=== PATIENT | female | born 1970 | race Caucasian/White ===

== ENCOUNTER 2020-03-12 10:09 | Day surgery (SDC) | payer MEDICARE, MEDICAID ==
[~2020-03-12] VITALS: Ht 165.1 cm; Wt 103.0 kg
[~2020-03-12 10:09] MED LIST: BUPIVACAINE/PF 0.5% ONE; LIDOCAINE/PF 1%, 30ML ONE
[2020-03-12 10:37] VITALS: BP 117/71
[2020-03-12] MEDS ORDERED: CHLORHEXIDINE 15 ML UDC MM STA (10:38)
[2020-03-12] MEDS ORDERED: CHLORHEXIDINE 15 ML UDC ONE (10:56)
[2020-03-12] MEDS ORDERED: BACL20TA PO (10:58)
[2020-03-12] MEDS ORDERED: MORP30TA PO (10:58)
[2020-03-12] MEDS ORDERED: METF500T17 PO (10:58)
[2020-03-12] MEDS ORDERED: OXYC10TA6 PO (10:58)
[2020-03-12] MEDS ORDERED: AMIL1TAB PO (10:58)
[2020-03-12] MEDS ORDERED: LACTATED RINGERS 1,000 ML IV SCH (11:00)
[2020-03-12] MEDS ORDERED: MIDAZOLAM 1 MG/ML, 2ML ONE (11:06)
[2020-03-12] MEDS ORDERED: FENTANYL PF 250 MCG/5ML ONE (11:07)
[2020-03-12 11:17] LABS: ALBUMIN 2.8 g/dL (3.4-5.0); CALCIUM 8.6 mg/dL (8.5-10.1)
[2020-03-12 11:22] LABS: ALANINE AMINOTRANSFERASE 19 U/L (12-78); ALKALINE PHOSPHATASE 78 U/L (45-117); BILIRUBIN,TOTAL 0.2 mg/dL (0.2-1.0); CREATININE 0.68 mg/dL (0.55-1.02); TOTAL PROTEIN 6.8 g/dL (6.4-8.2)
[2020-03-12 11:29] LABS: ANION GAP 4 mmol/L (5-15); CHLORIDE 111 mmol/L (98-107)
[2020-03-12] MEDS ORDERED: CEFAZOLIN 1,000 MG ONE (11:43)
[2020-03-12] MEDS ORDERED: PROPOFOL 10 MG/ML, 20ML ONE (11:43)
[2020-03-12] MEDS ORDERED: ONDANSETRON 2MG/ML, 2ML ONE (11:43)
[2020-03-12] MEDS ORDERED: OXYcodone 5 MG/5 ML ORAL.SOL UDC PO PRN (12:30)
[2020-03-12] MEDS ORDERED: ACETAMINOPHEN 325 MG TABLET PO PRN (12:30)
[2020-03-12] MEDS ORDERED: LABETALOL 5MG/ML, 20ML IV PRN (12:30)
[2020-03-12] MEDS ORDERED: FENTANYL PF 100 MCG/2ML IV PRN (12:30)
[2020-03-12] MEDS ORDERED: hydrALAzine 20 MG/ML, 1ML IV PRN (12:30)
[2020-03-12] MEDS ORDERED: ONDANSETRON 2MG/ML, 2ML IVPush PRN (12:30)
[2020-03-12] MEDS ORDERED: OXYcodone 5 MG/5 ML ORAL.SOL UDC ONE (13:37)
[2020-03-12] MEDS ORDERED: HYDROmorphone 2 MG/ML, 1ML ONE (13:37)
[2020-03-12] MEDS ORDERED: HYDROmorphone 1 MG/ML, 1ML INJ ONE (13:43)
[2020-03-12] MEDS: HYDROmorphone 1 MG/ML, 1ML INJ IVPush PRN ×2 (13:45→14:00)
== END 2020-03-12 16:30 | disposition home or self-care (01) ==
LOC: OUT 10:09
PROVIDERS: ATTEND Orthopaedic Surgery
DX: S82.852A Displaced trimalleolar fracture of left lower leg, initial encounter for closed fracture (principal); S93.432A Sprain of tibiofibular ligament of left ankle, initial encounter; G89.18 Other acute postprocedural pain; I10 Essential (primary) hypertension; E11.9 Type 2 diabetes mellitus without complications; J44.9 Chronic obstructive pulmonary disease, unspecified; K21.9 Gastro-esophageal reflux disease without esophagitis; G47.30 Sleep apnea, unspecified; Z79.84 Long term (current) use of oral hypoglycemic drugs; Z79.891 Long term (current) use of opiate analgesic; Z79.899 Other long term (current) drug therapy; Z88.0 Allergy status to penicillin; Z91.041 Radiographic dye allergy status; Z87.891 Personal history of nicotine dependence; Z99.81 Dependence on supplemental oxygen; Z82.61 Family history of arthritis; Z82.3 Family history of stroke; Z82.49 Family history of ischemic heart disease and other diseases of the circulatory system; W19.XXXA Unspecified fall, initial encounter; Y93.89 Activity, other specified; Y92.098 Other place in other non-institutional residence as the place of occurrence of the external cause; Y99.8 Other external cause status
CPT/HCPCS: 27822; 27829; 36415; 64445; 64447; 73610; 80053; 82962; 87635; 93005; C1713; J0690; J1170; J2250; J2405; J2704; J3010; J7120; 76000